=== PATIENT | female | born 1970 | race Caucasian/White ===

== ENCOUNTER 2017-02-15 16:21 | Emergency (ER) | payer BC ==
[~2017-02-15] VITALS: Ht 165.1 cm; Wt 58.0 kg
--- NOTE | ~2017-02-15 | CR181 ---
[facility] A Service [facility] RADIOLOGY TEXT RESULTS PATIENT: MAGALIS MENDOZA LOCATION: [facility] : 68 UNIT #: [id number] AGE: [address]: Yamilet Jain SEX: F ORDER DR: [id number] [facility]. [place], [place] [address] [id number] MR#: [id number] Acc #: [id number] NAME: MAGALIS MENDOZA : 1970 SEX: F STUDY DATE/TIME: 02/15/2017 17:33 UNIT: [place] ROOM: STUDY DESCRIPTION: CR Lumbar Spine 2 or 3 Views Attending Physician: Yamilet Jain P.A.-C. Ordering Physician: Yamilet Jain P.A.-C. Primary Care Physician: Coni Alonzo M.D. MEDICAL IMAGING REPORT This report is preliminary unless electronic signature is present EXAM Lumbar series 02/15/2017 INDICATIONS 46-year-old female with low back pain in the middle of the back extending to the right side today after fall. TECHNIQUE Three views of the lumbar spine were performed. COMPARISON 05/11/2012 FINDINGS Vertebral body heights and alignment are preserved. Mild wedge deformity of the inferior margin of L1 unchanged. There is no evidence of acute fracture or malalignment. There is mild degenerative facet arthropathy at L5-S1. Atherosclerotic change of the aorta present. IMPRESSION 1. 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 No acute-appearing fracture or malalignment. Dictated by... Phil De La Rosa M.D. THIS IS AN ELECTRONICALLY VERIFIED REPORT Phil De La Rosa M.D. at 02/16/2017 11:20 AM DULCE MARIA/miguel [facility] A Service [facility] RADIOLOGY TEXT RESULTS PATIENT: MAGALIS MENDOZA LOCATION: [facility] : 68 UNIT #: [id number] AGE: [address]: Yamilet Jain SEX: F ORDER DR: TD: 02/16/2017 08:29 JOB #: [id number] MEDICAL IMAGING REPORT Page 1 of 1 COPY
== END 2017-02-15 18:12 | disposition home or self-care (01) ==
LOC: CFTX 16:21 → CED 16:21 → CFTX 18:08
DX: S33.8XXA Sprain of other parts of lumbar spine and pelvis, initial encounter (principal); F17.210 Nicotine dependence, cigarettes, uncomplicated; W22.8XXA Striking against or struck by other objects, initial encounter; Y92.009 Unspecified place in unspecified non-institutional (private) residence as the place of occurrence of the external cause
CPT/HCPCS: 72100; 96372; 99283; J1885